=== PATIENT | female | born 1955 | race Caucasian/White ===

== ENCOUNTER → 2019-04-05 | Outpatient (CLI) | payer OTHER | END | disposition home or self-care (01) | LOC: ROC 04-03 09:41 | PROVIDERS: ATTEND Radiology Radiation Oncology | DX: C71.1 Malignant neoplasm of frontal lobe (principal); R63.4 Abnormal weight loss; R19.4 Change in bowel habit; Z78.0 Asymptomatic menopausal state | CPT/HCPCS: 99214; G0463 ==

== ENCOUNTER → 2019-04-12 | Outpatient (CLI) | payer OTHER ==
[~2019-04-12] MED LIST: GADOBUTROL 7.5 MMOL/7.5 ML PFS ONE
== END | disposition home or self-care (01) ==
LOC: CFH 11:39
PROVIDERS: ATTEND Radiology Radiation Oncology
DX: C17.9 Malignant neoplasm of small intestine, unspecified (principal); I10 Essential (primary) hypertension
CPT/HCPCS: 70553; A9585

== ENCOUNTER 2019-05-10 10:43 | Inpatient (IN) | payer OTHER ==
[~2019-05-10] VITALS: Ht 167.6 cm; Wt 52.1 kg
[2019-05-10] MEDS ORDERED: LORazepam 2 MG/ML, 1ML IM ONE (11:00)
[2019-05-10] MEDS ORDERED: LORazepam 2 MG/ML, 1ML ONE (11:15)
--- NOTE | 2019-05-10 11:47 | NUR ---
Pt assisted to bedside commode via one person, light assistance. CT notified of pt readiness for transport. Pt denies any further needs or concerns, at bedside, call light in reach.
[2019-05-10 12:29] LABS: BASOPHILS # (AUTO) 0.01 x10^3/uL (0-0.1); BASOPHILS % (AUTO) 0 % (0-1); EOSINOPHILS # (AUTO) 0.01 x10^3/uL (0-0.4); EOSINOPHILS % (AUTO) 0 % (1-7); LYMPHOCYTES % (AUTO) 6 % (22-44); MD NO; MEAN CORPUSCULAR HEMOGLOBIN 31.5 pg (27.0-34.8); MEAN CORPUSCULAR HGB CONC 32.8 g/dL (32.4-35.8); MEAN CORPUSCULAR VOLUME 95.9 fL (80-100); MEAN PLATELET VOLUME 6.8 fL (7.4-10.4); MONOCYTES # (AUTO) 0.29 x10^3/uL (0.2-0.8); MONOCYTES % (AUTO) 6 % (2-9); NEUTROPHILS # (AUTO) 4.39 x10^3/uL (1.8-6.8); NEUTROPHILS % (AUTO) 88 % (42-75); PLATELET COUNT 231 x10^3/uL (130-400); RED BLOOD COUNT 3.76 x10^6/uL (3.82-5.3); RED CELL DISTRIBUTION WIDTH 13.6 % (9.6-15.2)
[2019-05-10] MEDS ORDERED: DEXAMETHASONE 4 MG/ML, 1ML IVPush ONE (12:30)
[2019-05-10 12:35] LABS: INTERNATIONAL NORMALIZED RATIO 1.02 (0.93-1.1); PROTHROMBIN TIME 10.7 Seconds (9.6-11.5)
[2019-05-10 12:39] LABS: ALBUMIN 3.6 g/dL (3.4-5.0); ANION GAP 5 mmol/L (5-15); CALCIUM 8.9 mg/dL (8.5-10.1); CHLORIDE 106 mmol/L (98-107); CREATININE 0.87 mg/dL (0.55-1.02)
[2019-05-10] MEDS ORDERED: DEXAMETHASONE 4 MG/ML, 1ML ONE (12:45)
--- NOTE | 2019-05-10 12:45 | NUR ---
ALL RESULTS BACK, PT FOR RECHECK.
--- NOTE | 2019-05-10 13:23 | NUR ---
Pt without medlist on hand, unable to list medication names. States that she is on a new chemo medication, but unsure of dose and name.
[2019-05-10] MEDS ORDERED: GADOBUTROL 7.5 MMOL/7.5 ML PFS ONE (13:52)
--- NOTE | 2019-05-10 14:01 | NUR ---
PT IN MRI. REPORT GIVEN TO SAMMIE STOREY ON MED ONC BUT PRIMARY RN WILL NOTIFY HOSPITALIST ON PT'S RETURN TO ROOM FR POSSIBLE CHANGE TO LEVEL OF CARE.
[2019-05-10 15:17] VITALS: BP 103/71
[2019-05-10] MEDS ORDERED: ENALAPRILAT 1.25 MG/ML, 2ML IVPush PRN (15:30)
[2019-05-10] MEDS ORDERED: POLYETHYLENE GLYCOL 17 GM PACKET PO PRN (15:30)
[2019-05-10] MEDS ORDERED: LABETALOL 5MG/ML, 20ML IVPush PRN (15:30)
[2019-05-10] MEDS ORDERED: ACETAMINOPHEN 325 MG TABLET PO PRN (15:30)
[2019-05-10] MEDS ORDERED: BISACODYL 10 MG SUPP PR PRN (15:30)
[2019-05-10] MEDS ORDERED: ONDANSETRON ODT 4 MG PO PRN (15:30)
[2019-05-10] MEDS ORDERED: HYDROcodone/APAP 5/325 TABLET PO PRN (15:30)
[2019-05-10] MEDS ORDERED: ONDANSETRON 2MG/ML, 2ML IVPush PRN (15:30)
[2019-05-10] MEDS: DEXAMETHASONE 4 MG/ML, 1ML IVPush SCH ×2 (16:09→20:40)
[2019-05-10] MEDS ORDERED: CLON0.5T11 PO (17:08)
[2019-05-10] MEDS ORDERED: SULF1TAB24 PO (17:08)
[2019-05-10 19:36] VITALS: BP 100/65
[2019-05-10] MEDS: DOCUSATE 100 MG CAPSULE PO SCH (20:40)
[2019-05-11] MEDS: DEXAMETHASONE 4 MG/ML, 1ML IVPush SCH ×4 (03:00→20:56)
[2019-05-11 03:02] VITALS: BP 95/56
[2019-05-11 07:30] VITALS: BP 109/67
[2019-05-11] MEDS: DOCUSATE 100 MG CAPSULE PO SCH ×2 (09:08→20:56)
[2019-05-11 14:00] VITALS: BP 121/79
[2019-05-11 19:46] VITALS: BP 95/59
[2019-05-12] MEDS: DEXAMETHASONE 4 MG/ML, 1ML IVPush SCH ×4 (02:38→21:03)
[2019-05-12 02:39] VITALS: BP 99/62
[2019-05-12 05:56] LABS: MEAN CORPUSCULAR HEMOGLOBIN 31.7 pg (27.0-34.8); MEAN CORPUSCULAR HGB CONC 32.5 g/dL (32.4-35.8); MEAN CORPUSCULAR VOLUME 97.7 fL (80-100); PLATELET COUNT 267 x10^3/uL (130-400); RED CELL DISTRIBUTION WIDTH 13.9 % (9.6-15.2)
[2019-05-12 06:00] LABS: ANION GAP 4 mmol/L (5-15); CHLORIDE 106 mmol/L (98-107)
[2019-05-12 06:01] LABS: CREATININE 0.77 mg/dL (0.55-1.02)
[2019-05-12 06:10] LABS: BASOPHILS % (AUTO) 0 % (0-1); EOSINOPHILS % (AUTO) 0 % (1-7); LYMPHOCYTES # (AUTO) 0.22 x10^3/uL (1-3.4); LYMPHOCYTES % (AUTO) 3 % (22-44); MD SCAN; MONOCYTES # (AUTO) 0.17 x10^3/uL (0.2-0.8); MONOCYTES % (AUTO) 2 % (2-9); NEUTROPHILS # (AUTO) 7.52 x10^3/uL (1.8-6.8); NEUTROPHILS % (AUTO) 95 % (42-75)
[2019-05-12 06:51] VITALS: BP 99/59
[2019-05-12 09:25] VITALS: BP 109/69
[2019-05-12] MEDS: DOCUSATE 100 MG CAPSULE PO SCH ×2 (09:27→21:00)
[2019-05-12 12:43] VITALS: BP 101/64
[2019-05-12 20:48] VITALS: BP 95/58
[2019-05-13] MEDS: DEXAMETHASONE 4 MG/ML, 1ML IVPush SCH ×4 (03:05→20:42)
[2019-05-13 03:47] VITALS: BP 97/59
[2019-05-13 08:08] VITALS: BP 107/67
[2019-05-13] MEDS ORDERED: LORazepam 0.5MG TABLET PO ONE (09:00)
[2019-05-13] MEDS: DOCUSATE 100 MG CAPSULE PO SCH ×2 (09:00→20:42)
[2019-05-13 15:40] VITALS: BP 112/69
[2019-05-13 20:05] VITALS: BP 108/62
[2019-05-14] MEDS: DEXAMETHASONE 4 MG/ML, 1ML IVPush SCH ×2 (03:16→10:00)
[2019-05-14 03:18] VITALS: BP 115/68
[2019-05-14 07:26] VITALS: BP 109/71
[2019-05-14] MEDS ORDERED: POLY17PO5 PO (09:04)
[2019-05-14] MEDS ORDERED: DEXA4TAB66 PO (09:04)
[2019-05-14] MEDS ORDERED: DOCU-131 PO (09:04)
[2019-05-14] MEDS ORDERED: BISA10SU54 PR (09:04)
[2019-05-14] MEDS: DOCUSATE 100 MG CAPSULE PO SCH (10:00)
== END 2019-05-14 12:00 | disposition home or self-care (01) | DRG 54 ==
LOC: ED 11:14 → EDIP 13:14 → 3NW 15:07
PROVIDERS: ADMIT Internal Medicine; ATTEND Internal Medicine
DX: C71.9 Malignant neoplasm of brain, unspecified (principal); G93.6 Cerebral edema; I10 Essential (primary) hypertension; I49.3 Ventricular premature depolarization; I95.1 Orthostatic hypotension; K59.00 Constipation, unspecified; E89.0 Postprocedural hypothyroidism; R29.810 Facial weakness; Z80.7 Family history of other malignant neoplasms of lymphoid, hematopoietic and related tissues; Z80.8 Family history of malignant neoplasm of other organs or systems; Z85.841 Personal history of malignant neoplasm of brain
CPT/HCPCS: 36415; 70450; 70552; 70553; 80048; 82040; 85025; 85610; 93005; 99291; A9585; G0378; J1100; J2060

== ENCOUNTER 2019-06-21 09:31 | Outpatient (CLI) | payer OTHER | END 2019-06-21 23:59 | disposition home or self-care (01) | LOC: ROC 09:31 | PROVIDERS: ATTEND Radiology Radiation Oncology | DX: C71.1 Malignant neoplasm of frontal lobe (principal) | CPT/HCPCS: 99213; G0463 ==

== ENCOUNTER 2019-07-04 11:04 | Outpatient (CLI) | payer OTHER | END 2019-07-04 23:59 | disposition home or self-care (01) | LOC: CFH 11:04 | PROVIDERS: ATTEND Radiology Radiation Oncology | DX: C71.1 Malignant neoplasm of frontal lobe (principal) | CPT/HCPCS: 70553; A9585 ==

== ENCOUNTER 2019-07-05 07:55 | Outpatient (CLI) | payer OTHER | END 2019-07-05 23:59 | disposition home or self-care (01) | LOC: ROC 07:55 | PROVIDERS: ATTEND Radiology Radiation Oncology | DX: C71.1 Malignant neoplasm of frontal lobe (principal) | CPT/HCPCS: 99213; G0463 ==

== ENCOUNTER 2019-09-12 08:39 | Outpatient (CLI) | payer OTHER ==
[~2019-09-12 08:39] MED LIST changes: +BISA10SU54 PR; +CLON0.5T11 PO; +DEXA4TAB66 PO; +DOCU-131 PO; -GADOBUTROL 7.5 MMOL/7.5 ML PFS ONE; +POLY17PO5 PO; +SULF1TAB24 PO
== END 2019-09-12 23:59 | disposition home or self-care (01) ==
LOC: ROC 08:39
PROVIDERS: ATTEND Radiology Radiation Oncology
DX: C71.1 Malignant neoplasm of frontal lobe (principal)
CPT/HCPCS: 99213; G0463

== ENCOUNTER → 2019-10-23 | Outpatient (CLI) | payer OTHER ==
[~2019-10-23] MED LIST changes: +GADOTERATE 5 MMOL/10 ML VIAL ONE
== END | disposition home or self-care (01) ==
LOC: CFH 12:09
PROVIDERS: ATTEND Radiology Radiation Oncology
DX: C71.1 Malignant neoplasm of frontal lobe (principal); G93.89 Other specified disorders of brain
CPT/HCPCS: 70553; A9575

== ENCOUNTER → 2019-10-31 | Outpatient (CLI) | payer OTHER ==
[~2019-10-31] MED LIST changes: -GADOTERATE 5 MMOL/10 ML VIAL ONE
== END | disposition home or self-care (01) ==
LOC: ROC 08:21
PROVIDERS: ATTEND Radiology Radiation Oncology
DX: Z08 Encounter for follow-up examination after completed treatment for malignant neoplasm (principal); C71.1 Malignant neoplasm of frontal lobe
CPT/HCPCS: 99213; G0463

== ENCOUNTER → 2019-12-24 | Outpatient (CLI) | payer OTHER ==
[~2019-12-24] MED LIST changes: +GADOTERATE 7.5 MMOL/15 ML SYR ONE
== END | disposition home or self-care (01) ==
LOC: CFH 13:31
PROVIDERS: ATTEND Radiology Radiation Oncology
DX: C71.1 Malignant neoplasm of frontal lobe (principal); G31.9 Degenerative disease of nervous system, unspecified; G93.89 Other specified disorders of brain
CPT/HCPCS: 70553; A9575

== ENCOUNTER 2019-12-27 07:03 | Outpatient (CLI) | payer OTHER ==
[~2019-12-27 07:03] MED LIST changes: +CLON-364 PO; -CLON0.5T11 PO; -GADOTERATE 7.5 MMOL/15 ML SYR ONE
== END 2019-12-27 23:59 | disposition home or self-care (01) ==
LOC: ROC 07:03
PROVIDERS: ATTEND Radiology Radiation Oncology
DX: C71.1 Malignant neoplasm of frontal lobe (principal); Z88.1 Allergy status to other antibiotic agents; Z88.8 Allergy status to other drugs, medicaments and biological substances
CPT/HCPCS: 99212; G0463

== ENCOUNTER 2020-01-13 12:05 | Inpatient (IN) | payer OTHER ==
[~2020-01-13] VITALS: Ht 167.6 cm; Wt 55.3 kg
[2020-01-13] MEDS ORDERED: LORazepam 2 MG/ML, 1ML ONE (12:25)
--- NOTE | 2020-01-13 12:30 | NUR ---
ARRIVED TO ROOM VIA EMS, @ BEDSIDE, STATED PT HAD "TWITCHING OF HER NECK, LIP AND LEFT LEG", PT HAS H/O BRAIN TUMOR WITH CRANIOTOMY FOR REMOVAL, CURRENTLY ITS "INOPERABLE" SPEECH SLURRED, A&OX2-3, LEFT SIDE WEAK, SKIN INTACT, PWD, C/O CONSTIPATION ONGOING X1 WEEK, PROVIDER @ BEDSIDE DURING ASSESSMENT
--- NOTE | 2020-01-13 13:01 | NUR ---
PT IN CT
[2020-01-13] MEDS ORDERED: SODIUM CHLORIDE 0.9% 1,000 ML IV ONE (14:13)
[2020-01-13 14:43] LABS: MEAN CORPUSCULAR HGB CONC 34.2 g/dL (32.4-35.8); MEAN CORPUSCULAR VOLUME 99.4 fL (80-100); MEAN PLATELET VOLUME 6.1 fL (7.4-10.4); PLATELET COUNT 127 x10^3/uL (130-400); RED BLOOD COUNT 4.18 x10^6/uL (3.82-5.3); RED CELL DISTRIBUTION WIDTH 14.7 % (9.6-15.2)
[2020-01-13 14:54] LABS: ALANINE AMINOTRANSFERASE 19 U/L (12-78); ALBUMIN 3.4 g/dL (3.4-5.0); ANION GAP 7 mmol/L (5-15); CALCIUM 8.4 mg/dL (8.5-10.1); CHLORIDE 98 mmol/L (98-107); CREATININE 1.01 mg/dL (0.55-1.02)
[2020-01-13 14:57] LABS: ALKALINE PHOSPHATASE 53 U/L (45-117); BILIRUBIN,TOTAL 0.7 mg/dL (0.2-1.0); TOTAL PROTEIN 6.8 g/dL (6.4-8.2)
[2020-01-13 15:12] LABS: BASOPHILS # (AUTO) 0.01 x10^3/uL (0-0.1); BASOPHILS % (AUTO) 1 % (0-1); EOSINOPHILS # (AUTO) 0.01 x10^3/uL (0-0.4); EOSINOPHILS % (AUTO) 1 % (1-7); LYMPHOCYTES # (AUTO) 0.45 x10^3/uL (1-3.4); LYMPHOCYTES % (AUTO) 16 % (22-44); MD SCAN; MONOCYTES % (AUTO) 7 % (2-9); NEUTROPHILS # (AUTO) 2.14 x10^3/uL (1.8-6.8); NEUTROPHILS % (AUTO) 76 % (42-75)
--- NOTE | 2020-01-13 15:39 | NUR ---
Pt resting in bed with eyes closed, resp even and unlabored, NADN. Pt easily awakens to her name being called. Report called to Venkata STOREY on med/onc. Floor ready for pt transport.
[2020-01-13] MEDS ORDERED: CYAN1TAB29 PO (15:43)
[2020-01-13] MEDS ORDERED: DULO20CA45 PO (15:43)
[2020-01-13 16:21] VITALS: BP 144/89
[2020-01-13] MEDS ORDERED: LORazepam 2 MG/ML, 1ML IVPush PRN (17:00)
[2020-01-13] MEDS ORDERED: hydrALAzine 20 MG/ML, 1ML IVPush PRN (17:00)
[2020-01-13] MEDS ORDERED: POLYETHYLENE GLYCOL 17 GM PACKET PO PRN (17:00)
[2020-01-13] MEDS ORDERED: OXYcodone IR 5MG TABLET PO PRN (17:00)
[2020-01-13] MEDS ORDERED: ACETAMINOPHEN 325 MG TABLET PO PRN (17:00)
[2020-01-13] MEDS ORDERED: ONDANSETRON 2MG/ML, 2ML IVPush PRN (17:00)
[2020-01-13 17:04] VITALS: BP 123/83
[2020-01-13] MEDS: DEXAMETHASONE 4 MG TABLET PO SCH (17:28)
[2020-01-13] MEDS: SODIUM CHLORIDE 0.9% 1,000 ML IV SCH (17:28)
[2020-01-13 18:14] LABS: ANION GAP 7 mmol/L (5-15); CALCIUM 8.3 mg/dL (8.5-10.1); CHLORIDE 98 mmol/L (98-107); CREATININE 0.92 mg/dL (0.55-1.02)
[2020-01-13] MEDS: SULFAMETH./TRIMETHOPRIM DS 800MG/160MG TABLET PO SCH (20:20)
[2020-01-13 21:01] VITALS: BP 98/65
[2020-01-13] MEDS ORDERED: DULOXETINE 20 MG CAPSULE.DR ONE (22:47)
[2020-01-13] MEDS: DULOXETINE 20 MG CAPSULE.DR PO SCH (22:50)
[2020-01-13 23:30] LABS: ANION GAP 11 mmol/L (5-15); CALCIUM 8.4 mg/dL (8.5-10.1); CHLORIDE 100 mmol/L (98-107); CREATININE 0.94 mg/dL (0.55-1.02)
[2020-01-14 02:00] VITALS: BP 107/64
[2020-01-14 02:58] LABS: CHLORIDE,URINE RANDOM 44 mmol/L; POTASSIUM,URINE RANDOM 27 mmol/L; SODIUM,URINE RANDOM 48 mmol/L
[2020-01-14 03:05] LABS: OSMOLALITY,URINE 367 mOsm/kg (500-850)
[2020-01-14 07:04] LABS: ANION GAP 5 mmol/L (5-15); CALCIUM 8.7 mg/dL (8.5-10.1); CHLORIDE 104 mmol/L (98-107); CREATININE 0.89 mg/dL (0.55-1.02)
[2020-01-14 07:05] LABS: MEAN CORPUSCULAR HEMOGLOBIN 33.7 pg (27.0-34.8); MEAN CORPUSCULAR HGB CONC 33.8 g/dL (32.4-35.8); MEAN CORPUSCULAR VOLUME 99.5 fL (80-100); MEAN PLATELET VOLUME 6.5 fL (7.4-10.4); PLATELET COUNT 122 x10^3/uL (130-400); RED BLOOD COUNT 4.04 x10^6/uL (3.82-5.3); RED CELL DISTRIBUTION WIDTH 14.9 % (9.6-15.2)
[2020-01-14 07:41] LABS: BASOPHILS % (AUTO) 0 % (0-1); EOSINOPHILS % (AUTO) 0 % (1-7); LYMPHOCYTES # (AUTO) 0.29 x10^3/uL (1-3.4); LYMPHOCYTES % (AUTO) 11 % (22-44); MD SCAN; MONOCYTES # (AUTO) 0.14 x10^3/uL (0.2-0.8); MONOCYTES % (AUTO) 6 % (2-9); NEUTROPHILS # (AUTO) 2.18 x10^3/uL (1.8-6.8); NEUTROPHILS % (AUTO) 83 % (42-75)
[2020-01-14 07:47] VITALS: BP 121/82
[2020-01-14] MEDS ORDERED: GADOTERATE 7.5 MMOL/15 ML SYR ONE (08:12)
[2020-01-14] MEDS: DEXAMETHASONE 4 MG TABLET PO SCH ×3 (08:37→16:37)
[2020-01-14] MEDS: SULFAMETH./TRIMETHOPRIM DS 800MG/160MG TABLET PO SCH ×2 (08:37→20:25)
[2020-01-14] MEDS: SENNA/DOCUSATE TABLET PO SCH (08:37)
[2020-01-14] MEDS ORDERED: DULOXETINE 20 MG CAPSULE.DR PO SCH (09:00)
[2020-01-14 11:32] LABS: ANION GAP 9 mmol/L (5-15); CALCIUM 8.3 mg/dL (8.5-10.1); CHLORIDE 102 mmol/L (98-107)
[2020-01-14 11:34] LABS: CREATININE 1.07 mg/dL (0.55-1.02)
[2020-01-14] MEDS: SODIUM CHLORIDE 0.9% 1,000 ML IV SCH (11:49)
[2020-01-14 13:52] VITALS: BP 108/70
[2020-01-14 17:25] LABS: ANION GAP 9 mmol/L (5-15); CALCIUM 8.1 mg/dL (8.5-10.1); CHLORIDE 106 mmol/L (98-107); CREATININE 0.78 mg/dL (0.55-1.02)
[2020-01-14 19:48] VITALS: BP 118/76
[2020-01-14] MEDS: DULOXETINE 20 MG CAPSULE.DR PO SCH (20:25)
[2020-01-15 00:03] LABS: ANION GAP 8 mmol/L (5-15); CALCIUM 8.1 mg/dL (8.5-10.1); CHLORIDE 106 mmol/L (98-107); CREATININE 0.71 mg/dL (0.55-1.02)
[2020-01-15 02:00] VITALS: BP 120/80
[2020-01-15 06:39] VITALS: BP 137/83
[2020-01-15] MEDS: DEXAMETHASONE 4 MG TABLET PO SCH (09:35)
[2020-01-15] MEDS: SENNA/DOCUSATE TABLET PO SCH (09:35)
[2020-01-15] MEDS: SULFAMETH./TRIMETHOPRIM DS 800MG/160MG TABLET PO SCH (09:38)
[2020-01-15] MEDS ORDERED: DEXA4TAB66 PO (09:53)
== END 2020-01-15 11:02 | disposition home or self-care (01) | DRG 92 ==
LOC: ED 14:48 → EDIP 14:57 → INTOOBSV 14:57 → 4WST 16:03 → OBSVTOIN 01-14 15:31 → DCLOUNGE 01-15 10:54
PROVIDERS: ADMIT Hospitalist; ATTEND Hospitalist
DX: G25.3 Myoclonus (principal); E87.1 Hypo-osmolality and hyponatremia; C71.1 Malignant neoplasm of frontal lobe; R47.01 Aphasia; K59.00 Constipation, unspecified; Z85.841 Personal history of malignant neoplasm of brain; Z88.8 Allergy status to other drugs, medicaments and biological substances; Z91.018 Allergy to other foods
CPT/HCPCS: 36415; 70450; 70553; 80048; 80053; 82436; 83930; 83935; 84133; 84300; 85025; 93005; 99285; G0378; A9575; J7030

== ENCOUNTER 2020-02-04 09:58 | Inpatient (IN) | payer OTHER ==
[~2020-02-04] VITALS: Ht 167.6 cm; Wt 53.9 kg
[~2020-02-04 09:58] MED LIST changes: +CYAN1TAB29 PO; +DULO20CA45 PO
--- NOTE | 2020-02-04 10:26 | NUR ---
at beside. inquiring about pain meds. educated that md has not evaluated pt at this time and as soon as orders are placed this rn will provide medications that are ordered.
--- NOTE | 2020-02-04 10:34 | NUR ---
pt to x ray now. md made aware of pts pain.
[2020-02-04] MEDS ORDERED: ONDANSETRON 2MG/ML, 2ML ONE ×2 (10:36→12:35)
[2020-02-04] MEDS ORDERED: MORPHINE SULFATE 4 MG/ML, 1ML ONE ×2 (10:37→12:35)
--- NOTE | 2020-02-04 10:41 | NUR ---
verbal order for morphine 4 mg and zofran [address] arthur.
[2020-02-04] MEDS ORDERED: ONDANSETRON 2MG/ML, 2ML IVPush ONE ×2 (11:30→13:00)
[2020-02-04] MEDS ORDERED: MORPHINE SULFATE 4 MG/ML, 1ML IVPush ONE (11:30)
[2020-02-04] MEDS ORDERED: BISACODYL 5 MG EC TABLET ONE (11:36)
--- NOTE | 2020-02-04 11:47 | NUR ---
F/U CALL PLACED TO PHARM, STS WILL START MAKING [place] NOW. PT MEDICATED PER MAR. VSS AT THIS TIME. AT BEDSIDE. CALL LIGHT WITHIN REACH
[2020-02-04] MEDS ORDERED: BISACODYL 5 MG EC TABLET PO ONE (12:00)
[2020-02-04] MEDS ORDERED: PINK LADY ENEMA 490 ML BOTTLE PR ONE (12:30)
--- NOTE | 2020-02-04 12:44 | NUR ---
KENNET[facility] IN. NO OUTPUT YET, PT C/O LOTS OF PAIN. UPDATED, ORDERS RECEIVED FOR PAIN MEDS. MEDS GIVEN PER JAN.
[2020-02-04] MEDS ORDERED: MORPHINE SULFATE 4 MG/ML, 1ML IVPush PRN (13:00)
[2020-02-04] MEDS ORDERED: SODIUM CHLORIDE FLUSH 10ML SYR IVF ONE (13:00)
[2020-02-04] MEDS ORDERED: SODIUM CHLORIDE 0.9% 1,000ML IVBOLUS ONE (13:00)
--- NOTE | 2020-02-04 13:42 | NUR ---
NO SUCCESS AFTER ENEMA. MD UPDATED. PATIENT AND FAMILY WOULD LIKE TO SPEAK WITH MD ON OPTIONS.
--- NOTE | 2020-02-04 13:56 | NUR ---
STILL AWAITING MD RECHECK AT THIS TIME
--- NOTE | 2020-02-04 14:05 | NUR ---
AT BEDSIDE TO DISCUSS OPTIONS WITH PT AND
--- NOTE | 2020-02-04 14:08 | NUR ---
DECISION MADE TO ADMIT PT TO [facility]
--- NOTE | 2020-02-04 14:26 | NUR ---
LAB AT BEDSIDE
[2020-02-04] MEDS ORDERED: METHYLNALTREXONE 12 MG/0.6 ML SYR SQ ONE ×2 (14:30→14:43)
[2020-02-04] MEDS ORDERED: MAGNESIUM CITRATE 300ML ORAL SOL PO ONE (14:30)
[2020-02-04 14:40] LABS: BASOPHILS # (AUTO) 0.01 x10^3/uL (0-0.1); BASOPHILS % (AUTO) 0 % (0-1); EOSINOPHILS % (AUTO) 0 % (1-7); LYMPHOCYTES # (AUTO) 0.36 x10^3/uL (1-3.4); LYMPHOCYTES % (AUTO) 8 % (22-44); MD NO; MEAN CORPUSCULAR HEMOGLOBIN 34.1 pg (27.0-34.8); MEAN CORPUSCULAR HGB CONC 34.4 g/dL (32.4-35.8); MEAN CORPUSCULAR VOLUME 99.1 fL (80-100); MEAN PLATELET VOLUME 5.6 fL (7.4-10.4); MONOCYTES # (AUTO) 0.12 x10^3/uL (0.2-0.8); MONOCYTES % (AUTO) 3 % (2-9); NEUTROPHILS # (AUTO) 4.04 x10^3/uL (1.8-6.8); NEUTROPHILS % (AUTO) 89 % (42-75); PLATELET COUNT 140 x10^3/uL (130-400)
[2020-02-04 14:51] LABS: ALANINE AMINOTRANSFERASE 28 U/L (12-78); ALBUMIN 2.8 g/dL (3.4-5.0); ANION GAP 6 mmol/L (5-15); CALCIUM 7.7 mg/dL (8.5-10.1); CHLORIDE 94 mmol/L (98-107); CREATININE 0.54 mg/dL (0.55-1.02)
[2020-02-04 14:53] LABS: ALKALINE PHOSPHATASE 48 U/L (45-117); BILIRUBIN,TOTAL 0.8 mg/dL (0.2-1.0); TOTAL PROTEIN 6.1 g/dL (6.4-8.2)
--- NOTE | 2020-02-04 15:00 | NUR ---
ALL RESULTS BACK AT THIS TIME, AWAITING ADMIT ORDERS. PT SLEEPING IN BED, NADN. VSS. MEDICATED PER MAR. CALL LIGHT WITHIN REACH. AT BEDSIDE
[2020-02-04 15:48] VITALS: BP 133/85
[2020-02-04] MEDS ORDERED: ACETAMINOPHEN 325 MG TABLET PO PRN (17:00)
[2020-02-04] MEDS ORDERED: hydrALAzine 20 MG/ML, 1ML IVPush PRN (17:00)
[2020-02-04] MEDS ORDERED: DEXAMETHASONE 4 MG TABLET PO SCH (17:00)
[2020-02-04] MEDS ORDERED: ONDANSETRON 2MG/ML, 2ML IVPush PRN (17:00)
[2020-02-04] MEDS ORDERED: OXYcodone IR 5MG TABLET PO PRN (17:00)
[2020-02-04] MEDS ORDERED: POLYETHYLENE GLYCOL 17 GM PACKET PO PRN (17:00)
[2020-02-04] MEDS ORDERED: TRAZODONE 50MG TABLET PO PRN (17:00)
[2020-02-04] MEDS: SODIUM CHLORIDE 0.9% 1,000 ML IV SCH (18:04)
[2020-02-04 19:34] VITALS: BP 122/82
[2020-02-04] MEDS: SULFAMETH./TRIMETHOPRIM DS 800MG/160MG TABLET PO SCH (20:27)
[2020-02-04] MEDS: DULOXETINE 20 MG CAPSULE.DR PO SCH (20:28)
[2020-02-05 00:28] VITALS: BP 124/72
[2020-02-05 06:34] VITALS: BP 126/79
[2020-02-05 07:06] VITALS: BP 146/77
[2020-02-05 07:19] LABS: ANION GAP 7 mmol/L (5-15); CALCIUM 7.6 mg/dL (8.5-10.1); CHLORIDE 97 mmol/L (98-107); CREATININE 0.39 mg/dL (0.55-1.02)
[2020-02-05] MEDS: DULOXETINE 20 MG CAPSULE.DR PO SCH (08:07)
[2020-02-05] MEDS: SENNA/DOCUSATE TABLET PO SCH (08:07)
[2020-02-05] MEDS: FOLIC ACID 1 MG TABLET PO SCH (08:07)
[2020-02-05] MEDS: SULFAMETH./TRIMETHOPRIM DS 800MG/160MG TABLET PO SCH ×2 (08:08→20:07)
[2020-02-05] MEDS: DEXAMETHASONE 4 MG TABLET PO SCH ×3 (08:08→23:08)
[2020-02-05 08:14] LABS: BASOPHILS % (AUTO) 0 % (0-1); EOSINOPHILS % (AUTO) 0 % (1-7); LYMPHOCYTES # (AUTO) 0.35 x10^3/uL (1-3.4); LYMPHOCYTES % (AUTO) 10 % (22-44); MD SCAN; MEAN CORPUSCULAR HEMOGLOBIN 34.3 pg (27.0-34.8); MEAN CORPUSCULAR HGB CONC 34.3 g/dL (32.4-35.8); MEAN CORPUSCULAR VOLUME 100.2 fL (80-100); MEAN PLATELET VOLUME 5.9 fL (7.4-10.4); MONOCYTES # (AUTO) 0.15 x10^3/uL (0.2-0.8); MONOCYTES % (AUTO) 4 % (2-9); NEUTROPHILS # (AUTO) 3.07 x10^3/uL (1.8-6.8); NEUTROPHILS % (AUTO) 86 % (42-75); PLATELET COUNT 107 x10^3/uL (130-400); RED BLOOD COUNT 3.86 x10^6/uL (3.82-5.3); RED CELL DISTRIBUTION WIDTH 14.8 % (9.6-15.2)
[2020-02-05] MEDS ORDERED: CYANOCOBALOMIN 100MCG TABLET PO SCH (09:00)
[2020-02-05] MEDS: KETOROLAC 30 MG/1 ML IM PRN ×2 (10:10→23:19)
[2020-02-05] MEDS ORDERED: MAGNESIUM HYDROXIDE 8%, 30ML UDC PO ONE (11:00)
[2020-02-05 13:02] VITALS: BP 138/83
[2020-02-05] MEDS: SODIUM CHLORIDE 0.9% 1,000 ML IV SCH (13:09)
[2020-02-05] MEDS ORDERED: BISACODYL 10 MG SUPP PR SCH (15:30)
[2020-02-05] MEDS ORDERED: BISACODYL 10 MG SUPP PR PRN (16:00)
[2020-02-05] MEDS ORDERED: GOLYTELY 4,000ML ORAL.SOL PO ONE (16:00)
[2020-02-05 19:24] VITALS: BP 138/83
[2020-02-06 00:56] VITALS: BP 118/73
[2020-02-06 06:07] LABS: ANION GAP 5 mmol/L (5-15); CALCIUM 7.3 mg/dL (8.5-10.1); CHLORIDE 103 mmol/L (98-107)
[2020-02-06 06:11] LABS: CREATININE 0.38 mg/dL (0.55-1.02)
[2020-02-06] MEDS: DEXAMETHASONE 4 MG TABLET PO SCH ×3 (06:45→23:24)
[2020-02-06] MEDS: SODIUM CHLORIDE 0.9% 1,000 ML IV SCH (06:45)
[2020-02-06 07:53] VITALS: BP 121/85
[2020-02-06] MEDS: FOLIC ACID 1 MG TABLET PO SCH (08:15)
[2020-02-06] MEDS: SENNA/DOCUSATE TABLET PO SCH (08:15)
[2020-02-06] MEDS: DULOXETINE 20 MG CAPSULE.DR PO SCH (08:15)
[2020-02-06] MEDS: SULFAMETH./TRIMETHOPRIM DS 800MG/160MG TABLET PO SCH ×2 (09:00→20:15)
[2020-02-06] MEDS ORDERED: POLYETHYLENE GLYCOL 17 GM PACKET PO SCH (10:00)
[2020-02-06] MEDS ORDERED: POLYETHYLENE GLYCOL 17 GM PACKET PO PRN (10:00)
[2020-02-06] MEDS: NEUTRA PHOS K 250 MG TABLET PO SCH ×3 (13:16→20:15)
[2020-02-06] MEDS: CYANOCOBALAMIN 1,000 MCG TABLET PO SCH (13:16)
[2020-02-06] MEDS ORDERED: METHYLNALTREXONE 12 MG/0.6 ML SYR SQ SCH (14:00)
[2020-02-06 16:26] VITALS: BP 131/82
[2020-02-06 19:26] VITALS: BP 133/78
[2020-02-07 02:08] VITALS: BP 137/77
[2020-02-07] MEDS: SODIUM CHLORIDE 0.9% 1,000 ML IV SCH ×2 (04:37→22:58)
[2020-02-07 04:43] LABS: BASOPHILS % (AUTO) 0 % (0-1); EOSINOPHILS % (AUTO) 0 % (1-7); LYMPHOCYTES % (AUTO) 5 % (22-44); MD NO; MEAN CORPUSCULAR HEMOGLOBIN 34.6 pg (27.0-34.8); MEAN CORPUSCULAR HGB CONC 34.4 g/dL (32.4-35.8); MEAN CORPUSCULAR VOLUME 100.8 fL (80-100); MEAN PLATELET VOLUME 5.7 fL (7.4-10.4); MONOCYTES # (AUTO) 0.11 x10^3/uL (0.2-0.8); MONOCYTES % (AUTO) 3 % (2-9); NEUTROPHILS # (AUTO) 3.45 x10^3/uL (1.8-6.8); NEUTROPHILS % (AUTO) 92 % (42-75); PLATELET COUNT 121 x10^3/uL (130-400); RED BLOOD COUNT 3.31 x10^6/uL (3.82-5.3); RED CELL DISTRIBUTION WIDTH 14.9 % (9.6-15.2)
[2020-02-07 07:17] VITALS: BP 144/78
[2020-02-07] MEDS: DEXAMETHASONE 4 MG TABLET PO SCH ×3 (08:32→22:58)
[2020-02-07] MEDS: CYANOCOBALAMIN 1,000 MCG TABLET PO SCH (08:32)
[2020-02-07] MEDS: SENNA/DOCUSATE TABLET PO SCH (08:34)
[2020-02-07] MEDS: DULOXETINE 20 MG CAPSULE.DR PO SCH (08:34)
[2020-02-07] MEDS: NEUTRA PHOS K 250 MG TABLET PO SCH ×3 (08:35→20:13)
[2020-02-07] MEDS: FOLIC ACID 1 MG TABLET PO SCH (08:35)
[2020-02-07] MEDS: SULFAMETH./TRIMETHOPRIM DS 800MG/160MG TABLET PO SCH ×2 (09:00→20:13)
[2020-02-07] MEDS ORDERED: GADOTERATE 7.5 MMOL/15 ML SYR ONE (12:58)
[2020-02-07 19:25] VITALS: BP 145/79
[2020-02-08 01:07] VITALS: BP 133/81
[2020-02-08 05:25] LABS: CALCIUM 7.8 mg/dL (8.5-10.1); CHLORIDE 101 mmol/L (98-107)
[2020-02-08 05:29] LABS: ANION GAP 8 mmol/L (5-15); CREATININE 0.43 mg/dL (0.55-1.02)
[2020-02-08] MEDS ORDERED: DOCU-131 PO (07:39)
[2020-02-08] MEDS ORDERED: POLY17PO5 PO (07:39)
[2020-02-08] MEDS ORDERED: SENN-88 PO (07:39)
[2020-02-08] MEDS ORDERED: BISA10SU4 PR (07:39)
[2020-02-08 07:54] VITALS: BP 138/83
[2020-02-08] MEDS: NEUTRA PHOS K 250 MG TABLET PO SCH ×2 (08:37→15:30)
[2020-02-08] MEDS: DULOXETINE 20 MG CAPSULE.DR PO SCH (08:37)
[2020-02-08] MEDS: FOLIC ACID 1 MG TABLET PO SCH (08:37)
[2020-02-08] MEDS: SULFAMETH./TRIMETHOPRIM DS 800MG/160MG TABLET PO SCH (08:38)
[2020-02-08] MEDS: SENNA/DOCUSATE TABLET PO SCH (08:38)
[2020-02-08] MEDS: CYANOCOBALAMIN 1,000 MCG TABLET PO SCH (08:38)
[2020-02-08] MEDS: DEXAMETHASONE 4 MG TABLET PO SCH ×2 (08:38→15:30)
[2020-02-08 13:19] VITALS: BP 121/82
== END 2020-02-08 19:44 | disposition home or self-care (01) | DRG 55 ==
LOC: ED 14:24 → EDIP 15:06 → 4NW 15:38
PROVIDERS: ADMIT Internal Medicine; ATTEND Internal Medicine
DX: C71.9 Malignant neoplasm of brain, unspecified (principal); E87.1 Hypo-osmolality and hyponatremia; K59.09 Other constipation; R29.810 Facial weakness; Z88.8 Allergy status to other drugs, medicaments and biological substances; Z91.018 Allergy to other foods; Z85.841 Personal history of malignant neoplasm of brain; Z79.899 Other long term (current) drug therapy
CPT/HCPCS: 36415; 70553; 74018; 80048; 80053; 83690; 83735; 84100; 85025; 96374; 96375; 99285; G0378; J1885; J2405; A9575; J2270; J7030